=== PATIENT | male | born 1950 ===

== ENCOUNTER 2018-02-21 06:02 | Day surgery (SDC) | payer BC ==
[2018-02-12 10:19] VITALS: BMI 24.2
[2018-02-21] MEDS ORDERED: ceFAZolin 1 gm in NS 2 GM/200 ML BAG IVPB ONE (07:23)
[2018-02-21] MEDS ORDERED: Propofol 10 mg/ml Inj (20 ML) ONE (07:33)
[2018-02-21] MEDS ORDERED: Midazolam 2 MG/2 ML VIAL ONE (07:33)
[2018-02-21] MEDS ORDERED: Rocuronium 10 mg/ml (5 ml) ONE ×2 (07:34→09:22)
[2018-02-21] MEDS ORDERED: ePHEDrine 50 mg/ml Inj ONE (07:34)
[2018-02-21] MEDS ORDERED: Phenylephrine 10 mg/ml Inj ONE (07:34)
[2018-02-21] MEDS: Bupivacaine 0.25% Inj(30mL) ONE ×4 (08:09→10:10)
[2018-02-21] MEDS: Lidocaine/Epinephrine 1% 1:100000 10 ML IJ ONE ×2 (08:09→08:33)
[2018-02-21] MEDS ORDERED: HYDROmorphone 0.5 mg/0.5 ml ISec IVP PRN (10:41)
--- NOTE | 2018-02-21 11:09 | PCM.SURG1 ---
Surgeon's Initial Post Op Note - Surgeon's Notes Surgeon: Luciano Nina MD Electro Mechanical Assembler: Rocio raymundo Type of Anesthesia: General Endo Pre-Operative Diagnosis: Left inguinal hernia possible bilateral hernia. Operative Findings: Left inguinal hernia and Right inguinal hernia. Post-Operative Diagnosis: Left inguinal hernia and Right bilateral hernia. B/L Lipoma of cord Operation Performed: Robotic Right inguinal hernia repair with mesh. Robotic Excision of lipoma of right spermatic cord. Robotic Left inguinal hernia repair with mesh. Robotic Excision of lipoma of Left spermatic cord. Lap B/L TAP block placement Specimen/Specimens Removed: Lipoma of right and left spermatic cord Estimated Blood Loss: EBL {In ML}: 10 Blood Products Given: N/A Drains Used: No Drains Post-Op Condition: Good Date of Surgery/Procedure: 02/21/18 Time of Surgery/Procedure: 11:10
[2018-02-21] MEDS ORDERED: HYDROmorphone 1 mg/ml ISec ONE (12:19)
[2018-02-21] MEDS: Oxycodone/Acetaminophen 5/325 mg Tab PO ONE ×2 (13:30→13:45)
--- NOTE | 2018-02-22 02:01 | OP ---
PROCEDURE DATE: 02/21/2018. PREOPERATIVE DIAGNOSES: Left inguinal hernia and possible right inguinal hernia. POSTOPERATIVE DIAGNOSES: 1. Left indirect inguinal hernia and right direct inguinal hernia. 2. Bilateral lipoma of the spermatic cord. PROCEDURES: 1. Robotic right inguinal hernia repair with mesh. 2. Robotic excision of the lipoma of right spermatic cord. 3. Robotic left inguinal hernia repair with mesh. 4. Robotic excision of the lipoma of the left spermatic cord. 5. Laparoscopic bilateral TAP block placement. SURGEON: Dr. Nina. TRACTOR MECHANIC APPRENTICE: USRI Villavicencio. TYPE OF ANESTHESIA: General endotracheal tube anesthesia. ESTIMATED BLOOD LOSS: Around 10 mL. DRAINS: None. PATHOLOGY: Lipoma of the cord was sent for the pathology. COMPLICATIONS: None. INTRAOPERATIVE FINDINGS: The patient had left indirect as well as lipoma of the cord and right direct inguinal hernia with a large lipoma of the spermatic cord identified. DESCRIPTION OF PROCEDURE: On intraoperative step, this 68-year-old male who was diagnosed with left inguinal hernia with possible bilateral inguinal hernia, brought to the OR, placed supine on the operating table. After induction of anesthesia, the abdomen was prepped and draped in a usual sterile fashion. A supraumbilical transverse incision was made after incising skin, subcutaneous tissue and the fascia. Another three 8 mm robotic port was placed and pneumo was created after first port and now the robot was brought in, camera arm as well as arm 1 and arm 2 was docked and the patient found to have left inguinal hernia as well as right inguinal bulge with direct defects. Now, the peritoneum was dissected from the left ASIS up to the right ASIS and dissection was carried down in the midline up to the space of Retzius literally to the lateral abdominal wall on the left side and the spermatic cord vessels as well as vas deferens was dissected and peritoneal sac was reduced back into the peritoneal cavity and the large lipoma of the cord was also resected. Now the dissection was carried down on the right side and peritoneal deflection was dissected. Vas deferens and spermatic cord vessels was dissected and the large lipoma of the cord was also resected and the patient had a direct hernia of the sac that was reduced back in to the peritoneal cavity and now the right and left anatomical mesh was placed after proper placement of the left and right anatomical mesh, the peritoneum was sutured with 0 Vicryl interrupted and 3-0 Vicryl continuous suture PDS and the specimen was sent off the tablet for pathology and now the laparoscopic procedure was done and bilateral TAP block was given. The 15:15 mL of Marcaine was given on the left side as well as right side and after proper TAP block, all the port was taken out under vision, pneumo was deflated. Umbilical port site was closed in 2 layer fascia with 0 Vicryl interrupted suture, skin with 4-0 Monocryl and dry sterile dressings was applied. The patient tolerated the procedure well. Count of the instruments and gauze was correct. There was no apparent complication. The patient was extubated in the OR and sent to the Postanesthesia Care Unit in stable condition. Pete Nina MD [facility]
[2018-02-22 11:22] VITALS: BP 150/79; PULSE 74; RESP 16; TEMP 97.8; O2SAT 98
== END 2018-02-21 15:58 | disposition home or self-care (01) ==
LOC: C.SDS 06:02
PROVIDERS: ATTEND Surgery Surgical Critical Care
DX: K40.20 Bilateral inguinal hernia, without obstruction or gangrene, not specified as recurrent (principal); D17.6 Benign lipomatous neoplasm of spermatic cord
CPT/HCPCS: 49650; 55520; 82948; 88304; C1781; J0690; J1170; J2001; J2250; J2370; J2704; J3010